=== PATIENT | female | born 1990 ===

== ENCOUNTER 2024-09-11 23:33 | Inpatient (IN) | payer OTHER, SELFPAY ==
[2024-09-11 23:54] VITALS: BP 136/81; PULSE 116
[2024-09-12] VITALS (27 sets, daily range): BP systolic 113–179; BP diastolic 58–91; PULSE 104–118; RESP 14–20; TEMP 36.8–37.2; O2SAT 96–98
--- NOTE | 2024-09-12 00:13 | P.OBHP_ITS ---
OB - H&P: HPI Labor/Induction History of Present Illness Date Seen: 09/12/24 Chief Complaint: Gloria is a 34 year old 2 para 1 at 40.5 weeks gestation based on ultrasound, who was transferred from the [facility] secondary to lack of adequate staffing on their part. She presented to [place] with concerns for leaking of fluid, had a negative AmniSure but then was subsequently diagnosed with gestational hypertension. Chief complaint: maternity : 2 Para: 1 Narrative: Gloria Francisco is a 34 year old female at 40.5 weeks with gestational hypertension here having irregular contractions. She requests only female caregivers. History of Present Dating criteria: based on 1st trimester US only care: good care Abnormal ultrasound findings: No ultrasound report is currently available to review. No problems indicated in transfer records. Patient reports having a low lying placenta that resolved this . complications: gestational hypertension Medical complications: none Labs Blood type: A (-) negative Rubella: immune GBS status: positive Narrative: Additional lab results and ultrasound reports requested from transferring facility. Review of Systems Status of ROS: Reports: 10 or more systems reviewed and unremarkable except as noted in History and below Meds Home Medications and Allergies Home Medications ?Medication ?Instructions ?Recorded ?Confirmed ?Type No Known Home Medications 09/11/24 09/11/24 History Allergies Allergy/AdvReac Type Severity Reaction Status Date / Time Olives Allergy Severe Anaphylaxis Uncoded 09/12/24 01:01 OB - H&P: Exam Physical Exam: Vital signs: Pulse BP 116 H 136/81 09/11/24 23:54 09/11/24 23:54 Narrative: VSS? General Appearance:? Alert,?appropriate appearance?for age. No acute distress? HEENT Exam:? Grossly?normal.? Neck / Thyroid Exam:? Supple? Chest/Respiratory Exam: Normal respiratory effort, symmetrical chest wall rise. Clear to auscultation.? Cardiovascular Exam: Regular rate and rhythm. S1, S2, no murmur, click, gallop, or rubs.? Gastrointestinal Exam: non-tender,? Gravid??? Musculoskeletal Exam: Back is straight and non-tender, full ROM of upper and lower extremities.? Skin: no rash or abnormalities? Neurologic Exam: Normal gait and speech, no tremor.? Psychiatric Exam: Alert and oriented, appropriate affect.??? Constitutional: Constitutional: no acute distress OB - Problem Based A/P Additional Plan (1) Gestational hypertension: Status: Acute (2) AMA (advanced maternal age) multigravida 35+: Status: Acute (3) Rh negative status during : Status: Acute (4) Positive GBS test: Status: Acute (5) History of atony of uterus: Problem details: requiring methergine and [place] Cytotec 800mcg last delivery Status: Acute (6) 40 weeks gestation of : Status: Acute (7) History of precipitous delivery: Status: Acute Plan Assessment:?? at 40.5 weeks gestation?? GBS positive?? Labor type: Not in labor? Category 1 FHR pattern.? complicated by: Gestational hypertension Positive GBS status AMA >35 Rh negative blood type Hx of hypertension Hx of PPH, hx of precipitous labor short interval between pregnancies Hx of RADHA III-needs follow up testing 02/2025. Plan:?? * ?Admit to L & D? * IV access: SL * Monitoring per policy: continuous ? * Candidate for analgesia of choice.? Planning unmedicated for pain management * Reviewed risks and benefits of IOL, recommended AROM as pt desires low intervention. Patient is considering at this time * GBS prophylaxis initiated for GBS positive status. Will treat with antibiotics per protocol. * Monitor blood pressures. Consider repeat labs if severe elevation. ? * Patient encouraged to reposition and ambulate to promote physiologic labor and . * Anticipate ? Delivery/Labor/Induction Plan Plan: induction
--- NOTE | 2024-09-12 01:03 | PC.NURSE ---
Social work consult-Pt answered yes to pests, etc on sheet and potenital for utilities being shut off
--- NOTE | 2024-09-12 04:21 | PM.OBPNL ---
Subjective Date Seen: 09/12/24 Narrative: ?Gloria is coping well with labor pain/contractions she has been sleeping off and on. ?Deangelo is with her for support. ?She is requesting AROM for induction at this time. Had been doing the labor warm up prior to this without increase in contractions. ? Objective Exam: VSS, afebrile General Appearance:? Calm, cooperative. ?No acute distress. ? Psychiatric Exam: Alert and oriented, appropriate affect Abdomen: Gravid Ctx: ?Q 5 min apart. ?Mild ? ? FHTs: ?Baseline: 150. ? ? Variability: moderate. ?Accels: +. ? ?Decels: ?rare variable. SVE: 50/-3 Membranes: ?AROM small amount of clear fluid Vital Signs: Last Vital Signs Pulse 114 H 09/12/24 02:50 Resp 20 09/12/24 02:50 BP 114/58 L 09/12/24 02:50 Pulse Ox 96 09/12/24 02:51 Plan Plan: Assessment:?? at 40.5 gestation?? GBS positive Patient is coping well with challenges of labor.?? Labor type: Induced, Early labor? Category 1 FHR pattern.? complicated by: Gestational hypertension Positive GBS status AMA >35 Rh negative blood type Hx of hypertension Hx of PPH, hx of precipitous labor short interval between pregnancies Hx of RADHA III-needs follow up testing 02/2025. ? Plan:?? AROM as requested now, limit cervical exams as pt is GBS + Antibiotic prophylaxis treatment per protocol Consider IV Pitocin if labor is not progressing Continue with routine intrapartum cares as ordered.?? Patient encouraged to move and change positions to promote physiologic labor and .?? Nonpharmacologic comfort measures per patient preference. Candidate for analgesia of choice if desired. Anticipate progress to NVD. ?
[2024-09-12] MEDS: AMPICILLIN 1 GM in 0.9 % SODIUM CHLORIDE Mini-bag 100 ML IVPB (04:51)
--- NOTE | 2024-09-12 04:52 | P.OBPN_ITS ---
Subjective Date Seen: 09/12/24 Narrative: Reviewed lab results in records received after admission note: 06/16/24 Hgb 11.9 Plt 263 1hr GTT 150 3Hr GTT 88, 177, 142, 113, (08/05/24) 03/11/24 Varicella immune Rubella immune HIV neg Hgb 12.5 Plt 285 Hep B antigen neg Hep B antibody positive Hep b total ab negative Protein/Creatinine ratio, random urine 0.07 AST 13 Creatinine 0.52 Imaging 03/11/24 Single viable IUP with HAO of 09/07/2024 Anterior placenta is low lying, there is a lower uterine segment contraction. C ervical length 3.2cm 03/24/2024 Single intrauterine at 16w 1d gestation Redemonstrated of intermittent myometrial contraction during exams, but placental relationship to cervical os is normal at 3.4cm in the absence of my metrial contraction 03/30/2024 Single IUP at 17w 0d Low lying placenta with the placental edge approximately 0.6cm from the cervical os. Additionally there is a 2.3 cm hypoechoic collection along the placental edge near the cervical os which could represent clotted blood products possible from a small placental tear. 04/26/2024 Resolution previous low-lying placenta. Unchanged small placental yang. Otherwise routine anatomy survey completed and no anomalies identified. 06/16/24 Single intrauterine at 28w 1d Measurements within expected range for age (EFW 47.8%) Previously seen placental yang is decreased in size. 08/16/2024 Single IUP at 36w 6d Measurements within expected range for age. Normal amniotic fluid volume. EFW 55.9% Objective Vital Signs: Last Vital Signs Pulse 114 H 09/12/24 02:50 Resp 20 09/12/24 02:50 BP 114/58 L 09/12/24 02:50 Pulse Ox 96 09/12/24 02:51
[2024-09-12] MEDS: OXYTOCIN 30 unit/500 ML in NS 30 UNIT/500 ML BAG 300 UNIT IVPB (06:57)
--- NOTE | 2024-09-12 07:17 | W.PM.OBVAGDE ---
OB Procedure Vag Delivery Mother Details Mother Details: The patient is a 34 year-old, 2, Para 1, admitted on 09/11/24 at 40.5 weeks gestation. : 2 Para: 1 Weeks Gestation: 40.5 Admission Date: 09/11/24 Additional Details Amniotic Membrane Status: AROM Amniotic Membrane Rupture Date: 09/12/24 Amniotic Membrane Rupture Time: 04:10 Amniotic Membrane Fluid Description: Clear Analgesia/Anesthesia Type: None Waterbirth: No Pitcoin: Yes (for AMTSL) Intrapartal Events: Labor Induction Induction Method: AROM Labor Onset: 04:10 Complete: 06:40 Pushin:40 Heart: heart tones during second stage were continuously monitored, moderate variability, variables with final two pushes with quick return to baseline. Delivery Details Delivery Date: 09/12/24 Delivery Time: 06:53 Route of delivery: Gender: Male Viability: Alive; Heart Rate Present Position at Delivery: OA Delivery Details: 34?y.o?at 40.5 weeks.? Gloria was induced for gestational hypertension. AROM was used for induction performed at 0410 for a small amount of clear fluid. She then had more regular strong contractions and labored in the tub. Began to feel like pushing so was moved to the bed where she began to spontaneously push at 0640, assumed complete at that time. During pushing she complained of right upper quadrant pain which improved with repositioning. ? She became complete at 0640.??She pushed in left tilt position.? Spontaneous vaginal delivery at 0653 of?a viable?male infant.??Delivered in vertex OA position. There was a nuchal cord times one and a hand by the face, once Gloria pushed the head fully out was able to reduce nuchal cord and then?shoulders delivered easily.? Spontaneous cry noted.?? placed on maternal abdomen.??Cord?was clamped and cut after a 3 minute delay, brought to the warmer for concern about infants color.??Nose and mouth were bulb suctioned.? Shoulder dystocia: no? Nuchal cord: yes times one? Meconium stained?fluid: no? Water : no? ? ? 8 at 1 minute and 9 at 5 minutes.? Weight is pending. Facial bruising noted. ? Placenta delivered spontaneously and?complete?at 0702 with a?3 vessel?cord.?There was a large gush of blood with the placenta with free flowing bleeding. Cytotec 800mcg was given rectally and IV Pitocin was already infusing by IV. ?Bleeding was then controlled with fundal massage and no more gushes of bleeding was seen. ? ? Lacerations:? intact? ? Bleeding?post delivery?was: heavy. ?The fundus was firm to palpation.? Blood loss: 600?mL.? Blood loss measurement type: QBL? ? ? Sponge,?lap?and needles counts are correct.? Mother and infant were stable after delivery.? Immediately after delivery Gloria had two severely elevated BP's and was treated with IV Labetalol. She is refusing treatment with IV Magnesium at this time. She is aware of the risk of seizure and stroke without treatment of IV Magnesium. Dr. Chappell was informed of her status and refusal of Magnesium, she will be assuming care for severe preeclampsia. Will have repeat preeclampsia labs done this morning. 1 Minute Interval Total Score: 8 5 Minute Interval Total Score: 9 Additional Details Shoulder Dystocia: No Placenta Delivery Time: 07:02 Placental Delivery Description: Spontaneous Procedure Done: Global Blood Loss: 600 Laceration: Superficial Blood Loss Measurement Type: QBL Bakri Used: No Sponge/Need Count Correct: Yes Cord Vessel Description: 3 Vessels, Nuchal Cord, Loose and Reduced Event Summary Status: Mother and were stable after delivery. Disposition: floor
[2024-09-12] MEDS: LABETALOL HCL 5 MG/ML inj IVP (07:22)
[2024-09-12 07:52] LABS: Hematocrit 33.5 % (33.0-51.0); Hemoglobin* 10.8 gm/dL (12.0-16.0); Mean Corpuscular HGB Conc 32 gm/dL (32-36); Mean Corpuscular Hemoglobin 27 pg (26-34); Mean Corpuscular Volume 82 fL (80-100); Platelet Count* 247 K/uL (140-440); Red Blood Count 4.08 m/uL (4.00-5.20); White Blood Count* 18.26 K/uL (4.50-11.00)
[2024-09-12 08:00] LABS: Slide Review Reflex No
[2024-09-12 08:05] LABS: Creatinine* 0.6 mg/dL (0.5-1.5); Est. Creatinine Clearance* 117.76; Estimated Glomerular Filt Rate 120 ml/min
[2024-09-12 08:06] LABS: Alanine Aminotransferase* 12 U/L (4-35); Aspartate Amino Transferase* 19 U/L (12-35); Blood Urea Nitrogen* 8 mg/dL (5-24)
--- NOTE | 2024-09-12 09:49 | P.OBCN_ITS ---
OB - CN: HPI Date of Consult Time Seen by Provider: 12:30 Date Seen: 09/12/24 Patient: Other Consult date: 09/12/24 Requesting Physician: Donald Li CNM Primary Care Provider: Not a Local Provider Consult Narrative Reason for consult: gestational hypertension Narrative: Gloria is a 34yo G2 now P2 who had a normal spontaneous vaginal delivery this morning at approximately 7:00 a.m.. She was transferred from [address] in [place] with a diagnosis of gestational hypertension and was transferred due to lack of staffing at [place] [id number] Labor and delivery. The patient requested nurse environmental programs specialist care. She had an uncomplicated vaginal delivery today at approximately 7:00 a.m.. Her course was then complicated by severe range blood pressures. She received 1 dose of IV labetalol and was started on nifedipine ER 30 mg daily. The patient declined magnesium for seizure prophylaxis and signed a form stating she understands the risks of severe gestational hypertension without magnesium for seizure prophylaxis. She understands that she has risk of seizures, stroke and possible . I was asked to assume care of this patient 1 she develop severe range blood pressures. Please see Donald Li's admission history and physical note for complete details regarding her care and her delivery note for delivery details. She denies headache, visual disturbance, RUQ pain and swelling. She was sleeping when I entered her room and was easily awakened. She is breast-feeding her baby without difficulty. She states that she had to be on blood pressure medicine after the delivery of her 1st child but did not have to be on magnes ium. The patient declined magnesium for seizure prophylaxis with me. She understands the risks that were reviewed with her including seizures, stroke and possible . History of Present Dating criteria: based on 1st trimester US only care: good care Ultrasounds: normal 1st trimester US and abnormal US findings Abnormal ultrasound findings: Had a low-lying placenta at her 20week ultrasound that resolved. complications: gestational hypertension History History 2 Elective abortions Para 2 Spontaneous abortions Hx # Term Pregnancies Ectopic pregnancies Hx # Pregnancies Multiple births Number of Living Children 1 Labs Blood type: A (-) negative Rubella: immune RPR/VDLR: nonreactive GBS status: positive HBsAG: negative OB Labs: Lab Assessment Start: 09/11/24 23:47 Freq: ONCE Status: Active Protocol: PC.OBGBS Activity Type Activity Date Activity User E-sign Co-sign Detail Recorded Client Recorded Date Recorded By Document 09/12/24 00:04 RRP No Response 09/12/24 00:05 RRP 09/12/24 00:04 Lab Assessment GBS Status positive Is Patient Allergic to Penicillin? No Treatment Required OK Are Labs Available Yes Evaluate Maternal Rubella Immune Status Immune Hepatitis B Surface Antigen Negative Maternal HIV Status Negative Maternal Syphillis (RPR) Status Negative [facility] Medical History (Updated 09/12/24 @ 09:47 by Henrietta Chappell MD) Vaginal delivery ?O80 - Encounter for full-term uncomplicated delivery (ICD-10) Social History What is your current living situation?: I presently have a place to live Problems where you live: pests, such as bugs, ants, or mice In the past 12 months, utilities in danger of being shut off: yes In past 12 months, lack of transportation kept you from medical appts, meetings, work, or getting things needed for daily living: no In the past 12 mos, have been you worried that your food would run out before you had money to buy more?: never true In the past 12 mos, the food you bought just didn't last and you didn't have money to buy more?: never true Smoking Status: Never smoker How often does anyone, including family, friends and others, physically hurt you : never How often does anyone, including family, friends and others, insult or talk down to you: never How often does anyone, including family, friends and others, threaten you with harm: never How often does anyone, including family, friends and others, scream or curse at you: never Health Related Social Needs: Inadequate housing (Z59.1) Meds Home Medications and Allergies Home Medications ?Medication ?Instructions ?Recorded ?Confirmed ?Type No Known Home Medications 09/11/24 09/11/24 History Allergies Allergy/AdvReac Type Severity Reaction Status Date / Time Olives Allergy Severe Anaphylaxis Uncoded 09/12/24 01:01 OB - H&P: Exam Physical Exam: Vital signs: Temp Pulse Resp BP Pulse Ox 98.6 F 115 H 20 119/72 98 09/12/24 04:55 09/12/24 08:57 09/12/24 04:55 09/12/24 09:48 09/12/24 04:55 Narrative: General: Fatigued, pleasant, woman in no acute distress. Vital signs: Included in her electronic medical record. Chest: Clear to auscultation bilaterally. Heart: Regular rate and rhythm without gallop, rub or murmur. Abdomen: Fundus firm at 1 cm below the umbilicus in the midline, nontender. Extremities: No pain or edema. OB - Results Labs Labs: Short CBC 09/12/24 Range/Units 07:45 WBC 18.26 H (4.50-11.00) K/uL Hgb 10.8 L (12.0-16.0) gm/dL Hct 33.5 (33.0-51.0) % Plt Count 247 (140-440) K/uL BMP 09/12/24 07:45 BUN 8 Creatinine 0.6 Liver Function 09/12/24 Range/Units 07:45 AST 19 (12-35) U/L ALT 12 (4-35) U/L OB - CN: A/P Assessment and Plan (1) Gestational hypertension: Start date: 09/12/24 Start time: 08:30 Problem details: with severe range BP's. Declined Magnesium for seizure prophylaxis. Status: Acute Assessment and Plan: 1. Received 1 dose IV labetalol and started nifedipine ER 30mg daily. 2. Patient declined Magnesium for seizure prophylaxis: Against medical advice form reviewed and signed with the CNM's 3. The SUBSURFACE AUGMENTEE OPERATOR's will assume care of the patient due to severe gestational hypertension. 4. Recheck of preeclampsia labs done at 8am: all normal. Creat 0.6, BUN 8, AST 19, ALT 12, hgb 10.8, plts 247 and will be checked every 6hrs x4. (2) AMA (advanced maternal age) multigravida 35+: Status: Acute (3) Rh negative status during : Status: Acute (4) Positive GBS test: Status: Acute (5) History of atony of uterus: Problem details: requiring methergine and [place] Cytotec 800mcg last delivery Status: Acute (6) 40 weeks gestation of : Status: Acute (7) History of precipitous delivery: Status: Acute
[2024-09-12] MEDS: NIFEdipine 30 MG TAB.ER.24 PO (10:41)
[2024-09-12] MEDS: DOCUSATE SODIUM 100 MG CAPSULE PO (10:42)
[2024-09-12 13:49] LABS: Hematocrit 31.5 % (33.0-51.0); Hemoglobin* 10.4 gm/dL (12.0-16.0); Mean Corpuscular HGB Conc 33 gm/dL (32-36); Mean Corpuscular Hemoglobin 27 pg (26-34); Mean Corpuscular Volume 81 fL (80-100); Platelet Count* 289 K/uL (140-440); Red Blood Count 3.88 m/uL (4.00-5.20); White Blood Count* 18.81 K/uL (4.50-11.00)
[2024-09-12 13:59] LABS: Slide Review Reflex No
[2024-09-12 14:07] LABS: Alanine Aminotransferase* 13 U/L (4-35); Aspartate Amino Transferase* 22 U/L (12-35); Blood Urea Nitrogen* 6 mg/dL (5-24); Creatinine* 0.5 mg/dL (0.5-1.5); Est. Creatinine Clearance* 141.31; Estimated Glomerular Filt Rate 125 ml/min
[2024-09-12 19:24] LABS: Hematocrit 28.7 % (33.0-51.0); Hemoglobin* 9.4 gm/dL (12.0-16.0); Mean Corpuscular HGB Conc 33 gm/dL (32-36); Mean Corpuscular Hemoglobin 27 pg (26-34); Mean Corpuscular Volume 82 fL (80-100); Platelet Count* 254 K/uL (140-440); Red Blood Count 3.52 m/uL (4.00-5.20); White Blood Count* 15.65 K/uL (4.50-11.00)
[2024-09-12 19:26] LABS: Slide Review Reflex No
[2024-09-12 19:40] LABS: Alanine Aminotransferase* 12 U/L (4-35); Aspartate Amino Transferase* 22 U/L (12-35); Blood Urea Nitrogen* 6 mg/dL (5-24); Creatinine* 0.5 mg/dL (0.5-1.5); Est. Creatinine Clearance* 141.31; Estimated Glomerular Filt Rate 125 ml/min
[2024-09-13 00:23] VITALS: BP 123/82; PULSE 100; RESP 14; TEMP 36.6; O2SAT 98
[2024-09-13 05:50] VITALS: BP 123/75; PULSE 90; RESP 14; TEMP 36.5; O2SAT 96
[2024-09-13 06:52] LABS: Hemoglobin* 9.8 gm/dL (12.0-16.0)
[2024-09-13 09:18] VITALS: BP 120/86; PULSE 118; RESP 18; TEMP 36.6; O2SAT 98
[2024-09-13] MEDS: DOCUSATE SODIUM 100 MG CAPSULE PO (09:58)
--- NOTE | 2024-09-13 12:11 | PM.OBPNVD1 ---
OB - PN:Subj Subjective Date Seen: 09/13/24 Interval history: Gloria is a 34-year-old G2 now P 2-0-0-2 woman who is status post normal spontaneous vaginal delivery on 09/12/2024 at 40 weeks, 5 days gestation in the setting of induction of labor for gestational hypertension. She was diagnosed with severe gestational hypertension shortly ; based on to markedly elevated blood pressure levels. HELLP labs have been normal. She declined magnesium sulfate for seizure prophylaxis. She was treated with nifedipine ER 30 mg yesterday morning. She declined her dose this morning. All of her blood pressures have been normal since her early course. She denies any headache, visual changes, right upper quadrant pain. She does have a history of hypertension after her 1st child, and was on some antihypertensive medications for some time. Her is having some feeding difficulties, and Pediatrics has recommended that he stay overnight. Gloria has no complaints. She denies any pain. She is ambulating and urinating without difficulty. She denies any heavy bleeding. Narrative: Ob problem list: 1. care through [facility] 2. Advanced maternal age new line 3. Rh-negative status 4. GBS positive status 5. History of hemorrhage due to uterine atony with 1st 6. History of RADHA 3; reportedly due for follow-up testing in February 2025 OB - PN: Obj Exam Physical Exam: Vital signs: Temp Pulse Resp BP Pulse Ox O2 Del Method 97.9 F 118 H 18 120/86 98 Room Air 09/13/24 09:18 09/13/24 09:18 09/13/24 09:18 09/13/24 09:18 09/13/24 09:18 09/13/24 09:18 Narrative: General: Pleasant, no acute distress Heart: Regular rate and rhythm, no murmur or gallop Lungs: Clear to auscultation bilaterally Abdomen: Soft, nontender, fundus 2 cm below umbilicus Lower extremities: No edema or erythema OB - PN: Obj Data Labs Labs: Laboratory Results - last 24 hr 09/12/24 09/12/24 09/12/24 05:25 13:42 19:18 WBC 18.81 H 15.65 H RBC 3.88 L 3.52 L Hgb 10.4 L 9.4 L Hct 31.5 L 28.7 L MCV 81 82 MCH 27 27 MCHC 33 33 Plt Count 289 254 BUN 6 6 Creatinine 0.5 0.5 Estimated Creat Clear 141.31 141.31 Estimated GFR 125 125 AST 22 22 ALT 13 12 Antibody Identification Anti-D 09/13/24 06:31 WBC RBC Hgb 9.8 L Hct MCV MCH MCHC Plt Count BUN Creatinine Estimated Creat Clear Estimated GFR AST ALT Antibody Identification OB - PN: A/P Delivery Assessment and Plan (1) Gestational hypertension: Problem details: with severe range BP's. Declined Magnesium for seizure prophylaxis. Status: Acute Assessment and Plan: Normotensive on nifedipine yesterday. Will continue Q4h vitals and monitor off nifedipine throughout the day. (2) Normal spontaneous vaginal delivery: Status: Acute Assessment and Plan: Otherwise appropriate course. (3) Anemia associated with acute blood loss: Status: Acute Assessment and Plan: Begin ferrous sulfate QOD Plan day: 1 Plan: routine care Comments: anticipate discharge tomorrow
[2024-09-13 13:19] VITALS: BP 132/81; PULSE 108; RESP 16; TEMP 36.6; O2SAT 97
[2024-09-13] MEDS: FERROUS SULFATE 325 MG TABLET PO (13:21)
[2024-09-13 15:50] VITALS: BP 131/84; PULSE 107; RESP 18; TEMP 36.5; O2SAT 98
[2024-09-13] MEDS: ACETAMINOPHEN 500 MG TABLET 1000 MG PO (15:57)
--- NOTE | 2024-09-13 16:22 | PC.SOCIAL ---
Social work consult: transmission worker received a consult on the pt in regard to her answers during admission on The Social Determinants of Health(SDOH). Pt states that they had concerns that their utilities were going to get shut off back in the fall before the [place] cold weather rule kicked in. Pt states that they have completed an Energy Assistance Application with [facility] through [facility], as the pt and her family live in [place]. Pt states they completed the application back in May possibly June and turned it in, but haven't heard back on whether or not they have been approved. transmission worker did find on the [facility] website that they are currently processing EAP applications for [facility] that were received on 07/04/2024. The website was updated just today with this information. transmission worker relayed this information to the pt and her partner and they were thankful for the update. Concern for pests in the home were also flagged during the SDOH questionnaire, but the pt states that they don't have any concerns about that. Social work to follow-up as needed.
[2024-09-13 21:48] VITALS: BP 130/73; PULSE 92; RESP 18; TEMP 36.4; O2SAT 98
[2024-09-14 01:56] LABS: Rapid Plasma Reagin (RPR) Non Reactive (Non Reactive)
[2024-09-14 02:20] VITALS: BP 128/90; PULSE 100; RESP 18; O2SAT 98
[2024-09-14 03:02] LABS: Hematocrit 27.3 % (33.0-51.0); Hemoglobin* 9.1 gm/dL (12.0-16.0); Mean Corpuscular HGB Conc 33 gm/dL (32-36); Mean Corpuscular Hemoglobin 28 pg (26-34); Mean Corpuscular Volume 83 fL (80-100); Platelet Count* 268 K/uL (140-440); Red Blood Count 3.28 m/uL (4.00-5.20); White Blood Count* 8.85 K/uL (4.50-11.00)
[2024-09-14 03:03] LABS: Slide Review Reflex No
[2024-09-14 03:17] LABS: Alanine Aminotransferase* 17 U/L (4-35); Aspartate Amino Transferase* 34 U/L (12-35)
[2024-09-14 06:24] VITALS: BP 120/78; PULSE 102; RESP 18; TEMP 36.5; O2SAT 98
--- NOTE | 2024-09-14 08:38 | P.DS_ITS ---
DS: Providers Provider Time Seen by Provider: 08: Date Seen: 09/14/24 Date of admission: 09/11/24 23:33 Primary care physician: Not a Local Provider Admitting Clinician: Donald Li CNM Consults: 09/12/24 00:02 Consult to Manager Traffic [CONS] Routine Comment: Reason for Consult:: Social Service Consult 09/12/24 01:02 Consult to Manager Traffic [CONS] Routine Comment: Reason for Consult:: Social Service Consult Attending Physician on discharge: Donald Li CNM Exam Narrative: Exam Narrative: Physical exam: General: No acute distress Psych: Alert and oriented x3, full affect Heart: Regular rate and rhythm, no murmur rub or gallop Lungs: Clear to auscultation bilaterally Abdomen: Soft, nontender to palpation in the right upper quadrant. Fundus at umbilicus, mildly tender to palpation of the uterus appropriate with state. No rebound or guarding. Const: Vital Signs, click to edit/add: Vital Signs - 24 hr 09/13/24 09:18 09/13/24 13:19 09/13/24 15:50 Temperature 97.9 F 97.8 F 97.7 F Pulse Rate [Pulse Oximeter] 118 H 108 H 107 H Respiratory Rate 18 16 18 Blood Pressure [Le ft Arm] 120/86 132/81 131/84 Pulse Oximetry 98 97 98 Oxygen Delivery Me thod Room Air Room Air Room Air 09/13/24 21:48 09/14/24 02:20 09/14/24 06:24 Temperature 97.6 F 97.7 F Pulse Rate [Pulse Oximeter] 92 100 102 H Respiratory Rate 18 18 18 Blood Pressure [Le ft Arm] 130/73 128/90 H 120/78 Pulse Oximetry 98 98 98 Oxygen Delivery Me thod Room Air Room Air Room Air OB - DS: Summary Hospital Course Hospital Course: The patient is a 34 year old G 2 P 2 at 40 weeks gestation that was admitted to the Center on 09/11/24 for IOL in the setting of gestational HTN, which b ecame severe due to severe range BPs shortly after delivery. She had an uncomplicated vaginal delivery with CNM service. Of note, she declined magnesium sulfate therapy for seizure prophylaxis after extensive counseling. Patient was initially started on nifedipine 30 mg XL daily due to severe range hypertension, but did declined this on 09/13. Off medication, she has been essentially normotensive (1 mild range blood pressure with a diastolic of 90) and asymptomatic. Specifically, she denies headache, vision changes or right upper quadrant pain this morning. Serial HELLP labs were obtained and noted to be normal. She expresses the desire to avoid nifedipine if at all possible, where she does not feel it is necessary given her blood pressure course at this time. I agree that her blood pressures are currently safe, but explained that the pathophysiology of preeclampsia would likely include her blood pressure to rise in the coming days. She does have a blood pressure cuff at home, is agreeable to b.i.d. blood pressure monitoring. Strict return precautions were reinforced as described below. Patient had some baseline anemia on admission, with stable hemoglobin in the course. Additionally has mild tachycardia, but this appears to be her historic baseline (110-116bpm on admission). She is ambulating without difficulty - denies any chest pain, dyspnea, dizziness or lightheadedness. She notes lochia has been minimal. Denies any significant abdominal, pelvic or perineal pain. Appetite at baseline, no nausea or vomiting. Robust urine output noted. Patient is , with some difficulty. Working with . She is bonding appropriately with baby. She reports a desire to discharge to home today. She does have a visit scheduled for Thursday with her outside provider at [facility]. She notes she sees the MDs there. She is agreeable to calling them to switch this to a blood pressure check. Infant Gender: Male Time Spent with Patient Time attestation: Total time spent providing and/or coordinating discharge services: Discharge Plan Discharge Disposition: Home, Self-Care Date of Admission: 09/11/24 23:33 Attending Provider on Discharge: Diann Perdomo Primary Care Provider: Provider,Not a Local Condition: Stable Anticipated Discharge Date/Time: 09/14/24 09:03 Discharge Medications: New nifedipine 30 mg Tablet Extended Release 24hr 30 mg PO DAILY Qty: 14 0RF Discharge Orders: Discharge Order (Routine); Ordered 09/14/24 Ordered By: Diann Perdomo Additional Instructions: Discharge instructions were reviewed with the patient including signs and symptoms of infection and home going medications Nothing vaginally for 6 weeks: no tampons or intercourse Do not drive while taking narcotic pain medication(s) Off Work or School for 8 weeks Symptoms to report to doctor: * Bleeding that saturates more than one pad per hour * Passing clots larger than the size of a golf ball * Pain not relieved by prescribed medication * Fever above 100.4 degrees Fahrenheit * A foul vaginal odor * Difficulty in emotions, mood, and functions * Thoughts of hurting yourself and/or * Painful, reddened area in your breast * Any drainage, redness, or tenderness in your IV/epidural site * Severe headache that doesn't improve after taking medications * Changes in vision, including temporary loss of vision, blurred vision, and/or light sensitivity * Upper abdominal pain (usually under ribs on the right side) * Decrease in urination or painful, frequent urinating * Chest pain * Shortness of breath * Tenderness or pain with redness and/swelling in the calf(s) of your leg [facility] check offered - patient plan to follow up with her providers () at [facility] on 09/16/24. Call with BP greater than or equal to 160/110, persistent values of greater than or equal to 140/90, unrelenting headaches, vision changes or right upper quadrant pain. Optional 2-week visit: discuss feeding concerns, review control options and screen for anxiety/depression. 6-week visit for an annual exam. consultation services are available to all mothers and babies for the first year after delivery.? To make an appointment, please call [phone]. Activity Level: Activity as Tolerated Discharge Diet: Regular Follow Up Appointments: Provider,Not a Local [Primary Care Provider] - Forms: [employer] Info Instructions
[2024-09-14 09:07] VITALS: BP 120/77; PULSE 109; RESP 16; TEMP 36.7; O2SAT 97
== END 2024-09-14 13:20 | disposition home or self-care (01) | DRG 560 ==
PROVIDERS: Obstetrics & Gynecology; Admitting Provider Advanced Practice Midwife; Visit Provider Advanced Practice Midwife
DX: O13.4 Gestational [pregnancy-induced] hypertension without significant proteinuria, complicating childbirth (principal); O26.893 Other specified pregnancy related conditions, third trimester; Z67.11 Type A blood, Rh negative; O99.824 Streptococcus B carrier state complicating childbirth; O99.02 Anemia complicating childbirth; D62 Acute posthemorrhagic anemia; O99.893 Other specified diseases and conditions complicating puerperium; R00.0 Tachycardia, unspecified; Z37.0 Single live birth; Z3A.40 40 weeks gestation of pregnancy
CPT/HCPCS: 36415; 80048; 82565; 82570; 83735; 84156; 84450; 84460; 84520; 85018; 85027; 86592; 86850; 86870; 86880; 86900; 86901; 88307; A9270; J0290